=== PATIENT | female | born 1995 | race Hispanic/Latino ===

== ENCOUNTER 2017-05-27 17:18 | Emergency (ER) | payer OTHER ==
[~2017-05-27] VITALS: Ht 162.6 cm; Wt 93.1 kg
[~2017-05-27 17:18] MED LIST: BREAST PUMP MC; COLACE100 MG PO; DILAUDID2 MG PO; DOCUSATE SODIU100 MG PO; ENDOCET 5-3251 EACH PO; HYDROCORTISON28.4 GM TP; IBUPROFEN800 MG PO; IRON325 MG PO; KEFLEX500 MG PO; NAPROXEN375 MG PO; PRENATAL TABLE1 EAC3 PO; PROVENTIL,2.5 MG/3 M IH; STROVITE1 EACH PO; VENTOLIN HFA18 GM IH; ZOFRAN4 MG PO
[2017-05-27 18:05] LABS: ADD MIUA? NO; BILIRUBIN NEGATIVE; BLOOD NEGATIVE; COLOR YELLOW ((YELLOW)); GLUCOSE (STRIP) NEGATIVE; KETONES NEGATIVE; LEUKOCYTES NEGATIVE; NITRITE NEGATIVE; PROTEIN (STRIP) NEGATIVE; SPECIFIC GRAVITY 1.017 (1.000-1.030); UROBILINOGEN 0.2 MG/DL (0.2-1.0)
[2017-05-27 18:33] LABS: HEMATOCRIT 36.7 % (36.0-46.0); MCH 27.7 PG (29.0-34.0); MCHC 32.4 G/DL (30.0-36.0); MCV 85.3 FL (83-99); MEAN PLAT.VOLUME 11.5 uM^3 (9.5-12.4); PLATELET COUNT 88 K/uL (156-360); RBC DIS.WIDTH-SD 43.8 % (39-53)
[2017-05-27 18:46] LABS: CHLORIDE 108 mEq/L (99-109); POTASSIUM 3.8 mEq/L (3.7-5.4); SODIUM 140 mEq/L (136-147)
[2017-05-27 18:48] LABS: GLUCOSE 85 mg/dL (70-99)
[2017-05-27 18:50] LABS: ANION GAP 7 MEQ/L (2-14)
[2017-05-27 18:53] LABS: UREA NITROGEN (BUN) 11 mg/dL (9-23)
[2017-05-27 18:55] LABS: QUANTITATIVE HCG 250.1 MIU/ML
[2017-05-27 18:57] LABS: GFR ESTIMATE (CALCULATED) > 59 mL/min/
[2017-05-27 19:44] VITALS: BP 123/83
== END 2017-05-27 19:44 | disposition home or self-care (01) ==
LOC: EME 17:18
PROVIDERS: Physician Assistant
DX: O20.9 Hemorrhage in early pregnancy, unspecified (principal); O99.330 Smoking (tobacco) complicating pregnancy, unspecified trimester; F17.200 Nicotine dependence, unspecified, uncomplicated; Z3A.00 Weeks of gestation of pregnancy not specified; J45.909 Unspecified asthma, uncomplicated; Z91.040 Latex allergy status; Z90.49 Acquired absence of other specified parts of digestive tract
CPT/HCPCS: 80048; 81003; 84702; 85027; 99281; 99283

== ENCOUNTER 2017-06-17 01:52 | Emergency (ER) | payer OTHER ==
[~2017-06-17] VITALS: Ht 160 cm; Wt 92.0 kg
[2017-06-17 02:35] LABS: ADD MIUA? YES; BILIRUBIN NEGATIVE; BLOOD NEGATIVE; COLOR AMBER ((YELLOW)); GLUCOSE (STRIP) NEGATIVE; KETONES NEGATIVE; LEUKOCYTES NEGATIVE; NITRITE NEGATIVE; PROTEIN (STRIP) 30; UROBILINOGEN 0.2 MG/DL (0.2-1.0)
[2017-06-17 02:46] LABS: BACTERIA 2+ /HPF; EPITHELIAL CELLS 2+ /HPF; MUCUS 3+ /LPF; RED BLOOD CELLS 0-5 /HPF (0-5); UCUL ADDED? YES; WHITE BLOOD CELLS 0-5 /HPF (0-5)
[2017-06-17 02:48] LABS: HEMATOCRIT 36.7 % (36.0-46.0); MCH 28.5 PG (29.0-34.0); MCV 86.6 FL (83-99); MEAN PLAT.VOLUME 10.6 uM^3 (9.5-12.4); PLATELET COUNT 216 K/uL (156-360); RBC DIS.WIDTH-CV 13.9 % (11.8-14.6); RBC DIS.WIDTH-SD 43.9 % (39-53); RED BLOOD COUNT 4.24 M/uL (3.80-5.20); WHITE BLOOD COUNT 11.7 K/uL (4.1-10.2)
[2017-06-17 03:21] LABS: CHLORIDE 105 mEq/L (99-109); POTASSIUM 3.4 mEq/L (3.7-5.4); SODIUM 137 mEq/L (136-147)
[2017-06-17 03:23] LABS: GLUCOSE 97 mg/dL (70-99)
[2017-06-17 03:24] LABS: ANION GAP 9 MEQ/L (2-14)
[2017-06-17 03:25] LABS: TOTAL BILIRUBIN 0.4 mg/dL (0.0-1.0)
[2017-06-17 03:26] LABS: ALKALINE PHOSPHATASE 84 IU/L (3-129)
[2017-06-17 03:27] LABS: GFR ESTIMATE (CALCULATED) > 59 mL/min/
[2017-06-17 03:28] LABS: UREA NITROGEN (BUN) 8 mg/dL (9-23)
[2017-06-17 03:30] LABS: LIPASE 19 U/L (1.0-51.0)
[2017-06-17 03:31] LABS: QUANTITATIVE HCG 92814.6 MIU/ML
[2017-06-17] MEDS ORDERED: MACROBID100 MG PO (05:33)
[2017-06-17 05:56] VITALS: BP 90/34
== END 2017-06-17 06:23 | disposition home or self-care (01) ==
LOC: EME 01:52
DX: O23.11 Infections of bladder in pregnancy, first trimester (principal); O20.9 Hemorrhage in early pregnancy, unspecified; O99.331 Smoking (tobacco) complicating pregnancy, first trimester; Z3A.01 Less than 8 weeks gestation of pregnancy; J45.909 Unspecified asthma, uncomplicated; Z90.49 Acquired absence of other specified parts of digestive tract; F17.200 Nicotine dependence, unspecified, uncomplicated
CPT/HCPCS: 76801; 80053; 81003; 83690; 84702; 85027; 87086; 99281; 99284

== ENCOUNTER 2017-07-21 16:59 | Emergency (ER) | payer OTHER ==
[~2017-07-21] VITALS: Ht 160 cm; Wt 87.3 kg
[~2017-07-21 16:59] MED LIST changes: +MACROBID100 MG PO
[2017-07-21 19:47] LABS: HEMATOCRIT 40.1 % (36.0-46.0); MCHC 33.7 G/DL (30.0-36.0); MCV 86.2 FL (83-99); MEAN PLAT.VOLUME 11.1 uM^3 (9.5-12.4); PLATELET COUNT 210 K/uL (156-360); RBC DIS.WIDTH-CV 13.3 % (11.8-14.6); RBC DIS.WIDTH-SD 41.3 % (39-53); RED BLOOD COUNT 4.65 M/uL (3.80-5.20); WHITE BLOOD COUNT 12.9 K/uL (4.1-10.2)
[2017-07-21 19:52] LABS: ADD MIUA? YES; BILIRUBIN NEGATIVE; BLOOD NEGATIVE; COLOR YELLOW ((YELLOW)); GLUCOSE (STRIP) NEGATIVE; KETONES 20; LEUKOCYTES NEGATIVE; NITRITE NEGATIVE; PROTEIN (STRIP) 30; SPECIFIC GRAVITY 1.033 (1.000-1.030)
[2017-07-21 20:09] LABS: BACTERIA RARE /HPF; EPITHELIAL CELLS RARE /HPF; HYALINE CASTS 0-5 /LPF; MUCUS 2+ /LPF; RED BLOOD CELLS 0-5 /HPF (0-5); UCUL ADDED? NO; WHITE BLOOD CELLS 0-5 /HPF (0-5)
[2017-07-21 20:21] LABS: CHLORIDE 105 mEq/L (99-109); POTASSIUM 3.4 mEq/L (3.7-5.4); SODIUM 138 mEq/L (136-147)
[2017-07-21 20:23] LABS: GLUCOSE 89 mg/dL (70-99)
[2017-07-21 20:25] LABS: ANION GAP 13 MEQ/L (2-14); TOTAL BILIRUBIN 0.3 mg/dL (0.0-1.0)
[2017-07-21 20:27] LABS: ALKALINE PHOSPHATASE 73 IU/L (3-129); GFR ESTIMATE (CALCULATED) > 59 mL/min/
[2017-07-21 20:28] LABS: UREA NITROGEN (BUN) 11 mg/dL (9-23)
[2017-07-21] MEDS ORDERED: ZOFRAN ODT4 MG PO (22:39)
[2017-07-21] MEDS ORDERED: ZOFRAN4 MG PO (23:20)
[2017-07-21 23:33] VITALS: BP 97/52
== END 2017-07-21 23:33 | disposition home or self-care (01) ==
LOC: EME 16:59
PROVIDERS: Nurse Practitioner Family
DX: O26.891 Other specified pregnancy related conditions, first trimester (principal); R11.2 Nausea with vomiting, unspecified; R10.32 Left lower quadrant pain; Z3A.12 12 weeks gestation of pregnancy; J45.909 Unspecified asthma, uncomplicated; Z90.49 Acquired absence of other specified parts of digestive tract; Z87.891 Personal history of nicotine dependence
CPT/HCPCS: 76801; 80053; 81003; 84702; 85027; 99281; 99285; J2405; J7030

== ENCOUNTER 2017-08-12 01:09 | Emergency (ER) | payer OTHER ==
[~2017-08-12] VITALS: Ht 160 cm; Wt 88.4 kg
[~2017-08-12 01:09] MED LIST changes: +ZOFRAN ODT4 MG PO
[2017-08-12 01:35] LABS: HEMATOCRIT 34.8 % (36.0-46.0); MCH 29.5 PG (29.0-34.0); MCHC 33.9 G/DL (30.0-36.0); PLATELET COUNT 222 K/uL (156-360); RBC DIS.WIDTH-CV 13.5 % (11.8-14.6); RBC DIS.WIDTH-SD 42.9 % (39-53); WHITE BLOOD COUNT 14.1 K/uL (4.1-10.2)
[2017-08-12 01:42] LABS: CHLORIDE 105 mEq/L (99-109); POTASSIUM 3.6 mEq/L (3.7-5.4); SODIUM 138 mEq/L (136-147)
[2017-08-12 01:45] LABS: GLUCOSE 110 mg/dL (70-99)
[2017-08-12 01:46] LABS: ANION GAP 11 MEQ/L (2-14)
[2017-08-12 01:47] LABS: TOTAL BILIRUBIN 0.2 mg/dL (0.0-1.0)
[2017-08-12 01:48] LABS: ALKALINE PHOSPHATASE 75 IU/L (3-129); GFR ESTIMATE (CALCULATED) > 59 mL/min/
[2017-08-12 01:49] LABS: UREA NITROGEN (BUN) 10 mg/dL (9-23)
[2017-08-12 01:58] LABS: LIPASE 16 U/L (1.0-51.0)
[2017-08-12 02:06] LABS: ADD MIUA? YES; BILIRUBIN NEGATIVE; BLOOD NEGATIVE; COLOR YELLOW ((YELLOW)); GLUCOSE (STRIP) NEGATIVE; KETONES 5; LEUKOCYTES NEGATIVE; NITRITE NEGATIVE; PROTEIN (STRIP) NEGATIVE; SPECIFIC GRAVITY 1.019 (1.000-1.030)
[2017-08-12 02:27] LABS: QUANTITATIVE HCG 43741.9 MIU/ML
[2017-08-12 02:49] LABS: BACTERIA 1+ /HPF; EPITHELIAL CELLS 2+ /HPF; MUCUS NONE SEEN /LPF; RED BLOOD CELLS NONE SEEN /HPF (0-5); UCUL ADDED? NO; WHITE BLOOD CELLS NONE SEEN /HPF (0-5)
[2017-08-12 05:38] VITALS: BP 101/50
== END 2017-08-12 05:43 | disposition home or self-care (01) ==
LOC: EME 01:09
DX: O26.892 Other specified pregnancy related conditions, second trimester (principal); R10.32 Left lower quadrant pain; O21.9 Vomiting of pregnancy, unspecified; Z3A.15 15 weeks gestation of pregnancy; O99.512 Diseases of the respiratory system complicating pregnancy, second trimester; J45.909 Unspecified asthma, uncomplicated; O99.342 Other mental disorders complicating pregnancy, second trimester; F32.9 Major depressive disorder, single episode, unspecified; Z87.891 Personal history of nicotine dependence
CPT/HCPCS: 76805; 80053; 81003; 83690; 84702; 85027; 99281; 99283

== ENCOUNTER 2017-08-18 19:35 | Emergency (ER) | payer OTHER ==
[~2017-08-18] VITALS: Ht 160 cm; Wt 88.1 kg
[2017-08-18 20:45] LABS: HEMATOCRIT 34.8 % (36.0-46.0); MCH 29.4 PG (29.0-34.0); MEAN PLAT.VOLUME 10.5 uM^3 (9.5-12.4); PLATELET COUNT 194 K/uL (156-360); RBC DIS.WIDTH-CV 13.6 % (11.8-14.6); RBC DIS.WIDTH-SD 44.5 % (39-53); RED BLOOD COUNT 3.91 M/uL (3.80-5.20); WHITE BLOOD COUNT 11.7 K/uL (4.1-10.2)
[2017-08-18] MEDS ORDERED: PRENATAL TABLE1 EAC3 PO (20:52)
[2017-08-18 20:59] LABS: CHLORIDE 108 mEq/L (99-109); POTASSIUM 3.8 mEq/L (3.7-5.4); SODIUM 137 mEq/L (136-147)
[2017-08-18 21:01] LABS: GLUCOSE 79 mg/dL (70-99)
[2017-08-18 21:02] LABS: ANION GAP 8 MEQ/L (2-14)
[2017-08-18 21:04] LABS: ALKALINE PHOSPHATASE 68 IU/L (3-129)
[2017-08-18 21:05] LABS: GFR ESTIMATE (CALCULATED) > 59 mL/min/
[2017-08-18 21:06] LABS: UREA NITROGEN (BUN) 8 mg/dL (9-23)
[2017-08-18 21:11] LABS: TOTAL BILIRUBIN 0.3 mg/dL (0.0-1.0)
[2017-08-18 21:13] LABS: ADD MIUA? YES; BILIRUBIN NEGATIVE; BLOOD NEGATIVE; COLOR YELLOW ((YELLOW)); GLUCOSE (STRIP) NEGATIVE; KETONES 20; LEUKOCYTES SMALL; NITRITE NEGATIVE; PROTEIN (STRIP) 30; SPECIFIC GRAVITY 1.025 (1.000-1.030); UROBILINOGEN 0.2 MG/DL (0.2-1.0)
[2017-08-18 21:20] LABS: BACTERIA RARE /HPF; EPITHELIAL CELLS 3+ /HPF; HYALINE CASTS 0-5 /LPF; MUCUS TRACE /LPF; RED BLOOD CELLS 0-5 /HPF (0-5); WHITE BLOOD CELLS 0-5 /HPF (0-5)
[2017-08-18] MEDS ORDERED: ZOFRAN8 MG PO (21:44)
[2017-08-18 22:23] VITALS: BP 108/64
== END 2017-08-18 22:28 | disposition home or self-care (01) ==
LOC: EME 19:35
PROVIDERS: Physician Assistant
DX: O21.9 Vomiting of pregnancy, unspecified (principal); O20.9 Hemorrhage in early pregnancy, unspecified; J45.909 Unspecified asthma, uncomplicated; Z87.891 Personal history of nicotine dependence; Z3A.15 15 weeks gestation of pregnancy
CPT/HCPCS: 80053; 81003; 85027; 99281; 99285; J2405; J7030

== ENCOUNTER 2017-10-15 20:13 | Outpatient (CLI) | payer OTHER ==
[~2017-10-15 20:13] MED LIST changes: +ZOFRAN8 MG PO
[2017-10-15 20:26] VITALS: BP 115/59
[2017-10-15 21:12] LABS: EOSINOPHIL (%) 0.6 % (0-5); EOSINOPHIL COUNT 0.1 K/uL (0-0.3); HEMATOCRIT 35.9 % (36.0-46.0); IMMATURE GRANULOCYTE (%) 1.1 % (0.0-0.7); IMMATURE GRANULOCYTE COUNT 0.2 K/uL; INSTRUMENT ABS NEUTROPHIL CT 11.5 K/uL; LYMPHOCYTE COUNT 1.8 K/uL (1.0-2.8); MCH 29.8 PG (29.0-34.0); MCHC 33.1 G/DL (30.0-36.0); MCV 89.8 FL (83-99); MEAN PLAT.VOLUME 10.7 uM^3 (9.5-12.4); MONOCYTE (%) 4.6 % (3-12); MONOCYTE COUNT 0.7 K/uL (0-0.8); NEUTROPHIL (%) 80.6 % (45-76); NEUTROPHIL COUNT 11.5 K/uL (1.8-6.4); PLATELET COUNT 208 K/uL (156-360); RBC DIS.WIDTH-CV 13.4 % (11.8-14.6); RBC DIS.WIDTH-SD 44.2 % (39-53); WHITE BLOOD COUNT 14.3 K/uL (4.1-10.2)
[2017-10-15 21:16] LABS: ADD MIUA? YES; BILIRUBIN NEGATIVE; BLOOD NEGATIVE; COLOR AMBER ((YELLOW)); GLUCOSE (STRIP) NEGATIVE; KETONES 20; LEUKOCYTES NEGATIVE; NITRITE NEGATIVE; PROTEIN (STRIP) 100; SPECIFIC GRAVITY 1.027 (1.000-1.030)
[2017-10-15 21:21] LABS: ANION GAP 9 MEQ/L (2-14); CHLORIDE 106 MEQ/L (99-109); POTASSIUM 3.8 MEQ/L (3.7-5.4); SAMPLE HEMOLYSIS CHECK 0; SAMPLE ICTERIC CHECK 0; SAMPLE LIPEMIA CHECK 0; SODIUM 139 MEQ/L (136-147); TOTAL BILIRUBIN 0.6 MG/DL (0.0-1.0)
[2017-10-15 21:27] LABS: ALKALINE PHOSPHATASE 90 IU/L (3-129); GFR ESTIMATE (CALCULATED) > 59 mL/min/; GLUCOSE 82 mg/dL (70-99); UREA NITROGEN (BUN) 9 mg/dL (9-23)
[2017-10-15 21:29] LABS: RED BLOOD CELLS 0-5 /HPF (0-5); WHITE BLOOD CELLS 0-5 /HPF (0-5)
[2017-10-15 21:30] LABS: BACTERIA 2+ /HPF; EPITHELIAL CELLS 3+ /HPF; MUCUS 2+ /LPF
[2017-10-15 21:31] LABS: AMORPHOUS URATES CRYSTALS 1+
== END 2017-10-16 00:14 | disposition home or self-care (01) ==
LOC: LDRP-OP → 2WEST 20:15 → LDRP-OP 03-03 13:11
PROVIDERS: Nurse Practitioner
DX: O36.8120 Decreased fetal movements, second trimester, not applicable or unspecified (principal); Z3A.24 24 weeks gestation of pregnancy
CPT/HCPCS: 59025; 80053; 81003; 85025; 87086; G0378; J2405; J7120

== ENCOUNTER 2017-11-06 19:13 | Outpatient (CLI) | payer OTHER ==
[~2017-11-06] VITALS: Ht 160 cm; Wt 87.5 kg
[2017-11-06 19:52] VITALS: BP 103/58
[2017-11-06 20:39] LABS: SOURCE SWAB
[2017-11-06 20:52] LABS: APPEARANCE SL.HAZY ((CLEAR)); BILIRUBIN NEGATIVE; BLOOD NEGATIVE; COLOR YELLOW ((YELLOW)); GLUCOSE (STRIP) NEGATIVE; KETONES NEGATIVE; LEUKOCYTES NEGATIVE; NITRITE NEGATIVE; PROTEIN (STRIP) NEGATIVE; SPECIFIC GRAVITY 1.008 (1.000-1.030); UROBILINOGEN 0.2 MG/DL (0.2-1.0)
[2017-11-06 20:56] LABS: BACTERIA RARE /HPF; EPITHELIAL CELLS 1+ /HPF; MUCUS TRACE /LPF; RED BLOOD CELLS 0-5 /HPF (0-5); UCUL ADDED? NO; WHITE BLOOD CELLS 0-5 /HPF (0-5)
[2017-11-08 15:42] LABS: CANDIDA DNA PROBE NEGATIVE; GARDNERELLA DNA PROBE POSITIVE; TRICHOMONAS DNA PROBE NEGATIVE
== END 2017-11-06 21:00 | disposition home or self-care (01) ==
LOC: LDRP-OP 19:13 → 2WEST 19:15 → LDRP-OP 03-03 00:18
PROVIDERS: Midwife; Obstetrics & Gynecology Gynecology
DX: O99.89 Other specified diseases and conditions complicating pregnancy, childbirth and the puerperium (principal); R10.9 Unspecified abdominal pain; O34.219 Maternal care for unspecified type scar from previous cesarean delivery; O99.342 Other mental disorders complicating pregnancy, second trimester; F41.9 Anxiety disorder, unspecified; F42.9 Obsessive-compulsive disorder, unspecified; O99.512 Diseases of the respiratory system complicating pregnancy, second trimester; J45.909 Unspecified asthma, uncomplicated; O99.332 Smoking (tobacco) complicating pregnancy, second trimester; F17.200 Nicotine dependence, unspecified, uncomplicated; Z90.49 Acquired absence of other specified parts of digestive tract; Z86.19 Personal history of other infectious and parasitic diseases; Z3A.27 27 weeks gestation of pregnancy
CPT/HCPCS: 59025; 81003; 87480; 87491; 87510; 87591; 87660; G0378

== ENCOUNTER 2017-12-17 13:44 | Outpatient (CLI) | payer OTHER ==
[~2017-12-17] VITALS: Ht 152.4 cm; Wt 91.1 kg
[2017-12-17 14:02] VITALS: BP 111/58
[2017-12-17 14:55] LABS: SOURCE SWAB
[2017-12-17 15:00] LABS: APPEARANCE CLOUDY ((CLEAR)); BILIRUBIN NEGATIVE; BLOOD NEGATIVE; COLOR AMBER ((YELLOW)); GLUCOSE (STRIP) NEGATIVE; KETONES NEGATIVE; LEUKOCYTES NEGATIVE; NITRITE NEGATIVE; PROTEIN (STRIP) 30; SPECIFIC GRAVITY 1.026 (1.000-1.030)
[2017-12-17 15:48] LABS: RED BLOOD CELLS 0-5 /HPF (0-5); WHITE BLOOD CELLS 0-5 /HPF (0-5)
[2017-12-17 15:49] LABS: BACTERIA 2+ /HPF; CALCIUM OXALATE CRYSTALS 1+ /HPF; EPITHELIAL CELLS 3+ /HPF; MUCUS 3+ /LPF; UCUL ADDED? YES
[2017-12-17 16:25] LABS: CANDIDA DNA PROBE NEGATIVE; GARDNERELLA DNA PROBE NEGATIVE; TRICHOMONAS DNA PROBE NEGATIVE
== END 2017-12-17 15:28 | disposition home or self-care (01) ==
LOC: LDRP-OP 13:44 → 2WEST 13:45 → LDRP-OP 03-13 21:34
PROVIDERS: Midwife
DX: O26.893 Other specified pregnancy related conditions, third trimester (principal); O34.219 Maternal care for unspecified type scar from previous cesarean delivery; O99.343 Other mental disorders complicating pregnancy, third trimester; F41.9 Anxiety disorder, unspecified; F42.9 Obsessive-compulsive disorder, unspecified; O99.213 Obesity complicating pregnancy, third trimester; E66.9 Obesity, unspecified; Z90.49 Acquired absence of other specified parts of digestive tract; Z87.891 Personal history of nicotine dependence; Z3A.33 33 weeks gestation of pregnancy
CPT/HCPCS: 59025; 81003; 87086; 87480; 87491; 87510; 87591; 87660; G0378

== ENCOUNTER 2018-01-12 18:12 | Outpatient (CLI) | payer OTHER ==
[2018-01-12 18:28] VITALS: BP 116/64
== END 2018-01-12 19:05 | disposition home or self-care (01) ==
LOC: LDRP-OP 18:12 → 2WEST 18:14 → LDRP-OP 03-13 15:31
DX: O36.8130 Decreased fetal movements, third trimester, not applicable or unspecified (principal); Z3A.36 36 weeks gestation of pregnancy
CPT/HCPCS: 59025; G0378

== ENCOUNTER 2018-01-18 05:51 | Outpatient (CLI) | payer OTHER ==
[~2018-01-18] VITALS: Ht 160 cm; Wt 94.1 kg
[2018-01-18 06:06] VITALS: BP 121/63
[2018-01-18] MEDS ORDERED: PRENATAL GUMMI1 EACH PO (07:11)
== END 2018-01-18 07:55 | disposition home or self-care (01) ==
LOC: LDRP-OP 05:51 → 2WEST 05:52 → LDRP-OP 03-13 20:15
DX: O99.89 Other specified diseases and conditions complicating pregnancy, childbirth and the puerperium (principal); M54.5 Low back pain; O99.343 Other mental disorders complicating pregnancy, third trimester; F98.8 Other specified behavioral and emotional disorders with onset usually occurring in childhood and adolescence; F41.9 Anxiety disorder, unspecified; F32.9 Major depressive disorder, single episode, unspecified; O34.219 Maternal care for unspecified type scar from previous cesarean delivery; Z86.19 Personal history of other infectious and parasitic diseases; Z90.49 Acquired absence of other specified parts of digestive tract; O99.333 Smoking (tobacco) complicating pregnancy, third trimester; F17.200 Nicotine dependence, unspecified, uncomplicated; Z3A.37 37 weeks gestation of pregnancy
CPT/HCPCS: 59025; G0378

== ENCOUNTER 2018-01-23 18:25 | Outpatient (CLI) | payer OTHER ==
[~2018-01-23] VITALS: Ht 160 cm; Wt 92.5 kg
[~2018-01-23 18:25] MED LIST changes: +PRENATAL GUMMI1 EACH PO
[2018-01-23 18:57] VITALS: BP 112/59
[2018-01-23] MEDS ORDERED: ZOFRAN8 MG PO (19:21)
[2018-01-23 20:50] VITALS: BP 114/70
[2018-01-23 22:20] LABS: AMPHETAMINE NEGATIVE (500 ng/mL); BARBITURATES NEGATIVE (200 ng/mL); BENZODIAZEPINES NEGATIVE (150 ng/mL); BUPRENORPHINE NEGATIVE (10 ng/mL); COCAINE NEGATIVE (150 ng/mL); METHADONE NEGATIVE (200 ng/mL); METHAMPHETAMINE NEGATIVE (500 ng/mL); OPIATES (MORPHINE) NEGATIVE (100 ng/mL); OXYCODONE NEGATIVE (100 ng/mL); PHENCYCLIDINE NEGATIVE (25 ng/mL); PROPOXYPHENE NEGATIVE (300 ng/mL); THC CANNABINOIDS NEGATIVE (50 ng/mL); TRICYCLIC ANTIDEPRESSANTS NEGATIVE (300 ng/mL)
== END 2018-01-23 21:46 | disposition home or self-care (01) ==
LOC: LDRP-OP 18:25 → 2WEST 18:27 → LDRP-OP 03-13 08:00
PROVIDERS: Advanced Practice Midwife
DX: O47.1 False labor at or after 37 completed weeks of gestation (principal); Z3A.38 38 weeks gestation of pregnancy; O99.343 Other mental disorders complicating pregnancy, third trimester; F41.9 Anxiety disorder, unspecified; F42.9 Obsessive-compulsive disorder, unspecified; O34.219 Maternal care for unspecified type scar from previous cesarean delivery
CPT/HCPCS: 59025; G0378

== ENCOUNTER 2018-01-28 14:01 | Outpatient (CLI) | payer OTHER ==
[~2018-01-28] VITALS: Ht 160 cm; Wt 98.4 kg
[2018-01-28 14:26] VITALS: BP 102/69
[2018-01-29] MEDS ORDERED: IBUPROFEN800 MG PO (10:53)
[2018-01-29] MEDS ORDERED: ENDOCET 5-3251 EACH PO (10:53)
== END 2018-01-28 15:35 | disposition home or self-care (01) ==
LOC: LDRP-OP 14:01 → 2WEST 14:02 → LDRP-OP 03-13 21:51
DX: O47.1 False labor at or after 37 completed weeks of gestation (principal); Z3A.39 39 weeks gestation of pregnancy
CPT/HCPCS: 59025; G0378

== ENCOUNTER 2018-01-29 04:43 | Inpatient (IN) | payer OTHER ==
[2018-01-29] VITALS (10 sets, daily range): BP systolic 98–138; BP diastolic 53–80
[~2018-01-29] VITALS: Ht 160 cm; Wt 98.4 kg
[2018-01-29 10:47] LABS: BASOPHIL (%) 0.3 % (0-1); EOSINOPHIL (%) 1.3 % (0-5); EOSINOPHIL COUNT 0.2 K/uL (0-0.3); HEMATOCRIT 34.7 % (36.0-46.0); HEMOGLOBIN 11.1 G/DL (11.9-15.5); IMMATURE GRANULOCYTE (%) 0.6 % (0.0-0.7); LYMPHOCYTE (%) 28.1 % (15-42); MCH 27.8 PG (29.0-34.0); MONOCYTE (%) 5.6 % (3-12); MONOCYTE COUNT 0.8 K/uL (0-0.8); NEUTROPHIL (%) 64.1 % (45-76); NEUTROPHIL COUNT 9.2 K/uL (1.8-6.4); PLATELET COUNT 202 K/uL (156-360); RBC DIS.WIDTH-SD 44.3 % (39-53); RED BLOOD COUNT 3.99 M/uL (3.80-5.20); WHITE BLOOD COUNT 14.3 K/uL (4.1-10.2)
[2018-01-29] MEDS ORDERED: IBUPROFEN800 MG PO (10:53)
[2018-01-29] MEDS ORDERED: ENDOCET 5-3251 EACH PO (10:53)
[2018-01-29 11:29] LABS: AMPHETAMINE NEGATIVE (500 ng/mL); BARBITURATES NEGATIVE (200 ng/mL); BENZODIAZEPINES NEGATIVE (150 ng/mL); BUPRENORPHINE NEGATIVE (10 ng/mL); COCAINE NEGATIVE (150 ng/mL); METHADONE NEGATIVE (200 ng/mL); METHAMPHETAMINE NEGATIVE (500 ng/mL); OPIATES (MORPHINE) NEGATIVE (100 ng/mL); OXYCODONE NEGATIVE (100 ng/mL); PHENCYCLIDINE NEGATIVE (25 ng/mL); PROPOXYPHENE NEGATIVE (300 ng/mL); THC CANNABINOIDS NEGATIVE (50 ng/mL); TRICYCLIC ANTIDEPRESSANTS NEGATIVE (300 ng/mL)
[2018-01-30 03:49] VITALS: BP 104/52
[2018-01-30 07:12] LABS: BASOPHIL (%) 0.2 % (0-1); EOSINOPHIL (%) 0.1 % (0-5); HEMOGLOBIN 9.6 G/DL (11.9-15.5); IMMATURE GRANULOCYTE (%) 0.9 % (0.0-0.7); LYMPHOCYTE COUNT 4.1 K/uL (1.0-2.8); MCH 28.9 PG (29.0-34.0); MCHC 33.1 G/DL (30.0-36.0); MCV 87.3 FL (83-99); MONOCYTE (%) 7.1 % (3-12); MONOCYTE COUNT 1.4 K/uL (0-0.8); NEUTROPHIL (%) 71.7 % (45-76); NEUTROPHIL COUNT 14.6 K/uL (1.8-6.4); PLATELET COUNT 198 K/uL (156-360); RBC DIS.WIDTH-CV 14.3 % (11.8-14.6); RBC DIS.WIDTH-SD 44.8 % (39-53); RED BLOOD COUNT 3.32 M/uL (3.80-5.20); WHITE BLOOD COUNT 20.4 K/uL (4.1-10.2)
[2018-01-30 07:20] VITALS: BP 121/63
[2018-01-30 11:05] VITALS: BP 131/75
[2018-01-30 14:55] VITALS: BP 117/65
[2018-01-30 19:20] VITALS: BP 119/58
[2018-01-30 23:00] VITALS: BP 148/65
[2018-01-31] VITALS: BP 143/71
[2018-01-31 03:00] VITALS: BP 115/66
[2018-01-31 07:47] VITALS: BP 87/42
[2018-01-31 11:51] VITALS: BP 105/52
[2018-01-31 15:14] VITALS: BP 103/52
[2018-01-31 23:05] VITALS: BP 131/75
[2018-02-01 07:44] VITALS: BP 100/57
[2018-02-01 15:53] VITALS: BP 115/63
[2018-02-01 23:00] VITALS: BP 138/63
== END 2018-02-02 17:40 | disposition home or self-care (01) | DRG 766 ==
LOC: LDRP-OP 04:43 → 2WEST 04:44 → LDRP-OP 03-13 15:39
PROVIDERS: Advanced Practice Midwife; Obstetrics & Gynecology Gynecology
PROC: 10D00Z1 Extraction of Products of Conception, Low, Open Approach (ICD-10-PCS; principal; 2018-01-29)
DX: O34.211 Maternal care for low transverse scar from previous cesarean delivery (principal); O69.81X0 Labor and delivery complicated by cord around neck, without compression, not applicable or unspecified; O99.02 Anemia complicating childbirth; D50.9 Iron deficiency anemia, unspecified; O99.52 Diseases of the respiratory system complicating childbirth; J45.909 Unspecified asthma, uncomplicated; O99.334 Smoking (tobacco) complicating childbirth; F17.200 Nicotine dependence, unspecified, uncomplicated; O99.214 Obesity complicating childbirth; E66.9 Obesity, unspecified; Z88.0 Allergy status to penicillin; Z88.1 Allergy status to other antibiotic agents; Z91.040 Latex allergy status; Z68.33 Body mass index [BMI] 33.0-33.9, adult; Z3A.39 39 weeks gestation of pregnancy; Z37.0 Single live birth
CPT/HCPCS: 59025; 85025; 86850; 86900; 86901; G0378; J1170; J1580; J2405; J2550; J3010; J7050; J7120

== ENCOUNTER 2018-04-14 22:16 | Emergency (ER) | payer OTHER ==
[~2018-04-14] VITALS: Ht 177.8 cm; Wt 94.2 kg
[2018-04-14 23:15] LABS: HEMATOCRIT 39.5 % (36.0-46.0); HEMOGLOBIN 12.3 G/DL (11.9-15.5); MCH 25.3 PG (29.0-34.0); MCHC 31.1 G/DL (30.0-36.0); MCV 81.1 FL (83-99); PLATELET COUNT 267 K/uL (156-360); RBC DIS.WIDTH-CV 14.6 % (11.8-14.6); RBC DIS.WIDTH-SD 42.9 % (39-53); RED BLOOD COUNT 4.87 M/uL (3.80-5.20); WHITE BLOOD COUNT 8.6 K/uL (4.1-10.2)
[2018-04-15 00:31] LABS: APPEARANCE CLEAR ((CLEAR)); BILIRUBIN NEGATIVE; BLOOD NEGATIVE; COLOR YELLOW ((YELLOW)); GLUCOSE (STRIP) NEGATIVE; KETONES NEGATIVE; LEUKOCYTES NEGATIVE; NITRITE NEGATIVE; PROTEIN (STRIP) NEGATIVE; SPECIFIC GRAVITY 1.013 (1.000-1.030); UCUL ADDED? NO; UROBILINOGEN 0.2 MG/DL (0.2-1.0)
[2018-04-15 01:22] VITALS: BP 140/88
== END 2018-04-15 01:23 | disposition home or self-care (01) ==
LOC: EME 22:16
DX: N93.8 Other specified abnormal uterine and vaginal bleeding (principal); N83.201 Unspecified ovarian cyst, right side; F17.200 Nicotine dependence, unspecified, uncomplicated; Z88.0 Allergy status to penicillin
CPT/HCPCS: 76856; 76882; 81003; 84702; 85027; 99281; 99283

== ENCOUNTER 2018-05-06 15:24 | Emergency (ER) | payer OTHER ==
[~2018-05-06] VITALS: Ht 162.6 cm; Wt 94.1 kg
[2018-05-06 15:48] LABS: APPEARANCE CLEAR ((CLEAR)); BILIRUBIN NEGATIVE; BLOOD SMALL; COLOR STRAW ((YELLOW)); GLUCOSE (STRIP) NEGATIVE; KETONES NEGATIVE; LEUKOCYTES NEGATIVE; NITRITE NEGATIVE; PROTEIN (STRIP) NEGATIVE; SPECIFIC GRAVITY 1.012 (1.000-1.030); UROBILINOGEN 0.2 MG/DL (0.2-1.0)
[2018-05-06 15:50] LABS: BACTERIA RARE /HPF; EPITHELIAL CELLS RARE /HPF; MUCUS TRACE /LPF; RED BLOOD CELLS 0-5 /HPF (0-5); WHITE BLOOD CELLS 0-5 /HPF (0-5)
[2018-05-06 15:52] LABS: HEMOGLOBIN 11.9 G/DL (11.9-15.5); MCH 25.1 PG (29.0-34.0); MCHC 31.3 G/DL (30.0-36.0); PLATELET COUNT 247 K/uL (156-360); RBC DIS.WIDTH-CV 15.6 % (11.8-14.6); RBC DIS.WIDTH-SD 45.1 % (39-53); RED BLOOD COUNT 4.75 M/uL (3.80-5.20); WHITE BLOOD COUNT 7.3 K/uL (4.1-10.2)
[2018-05-06 16:00] LABS: CHLORIDE 110 mEq/L (99-109); POTASSIUM 4.3 mEq/L (3.7-5.4); SODIUM 140 mEq/L (136-147)
[2018-05-06 16:01] LABS: GLUCOSE 95 mg/dL (70-99)
[2018-05-06 16:05] LABS: CREATININE 0.8 mg/dL (0.6-1.3); GFR ESTIMATE (CALCULATED) > 59 mL/min/
[2018-05-06 16:06] LABS: UREA NITROGEN (BUN) 13 mg/dL (9-23)
[2018-05-06 16:14] LABS: QUANTITATIVE HCG < 4.0 MIU/ML
[2018-05-06 18:30] VITALS: BP 108/59
== END 2018-05-06 18:31 | disposition home or self-care (01) ==
LOC: EME 15:24
PROVIDERS: Nurse Practitioner Family
DX: N83.209 Unspecified ovarian cyst, unspecified side (principal); J45.909 Unspecified asthma, uncomplicated; F32.9 Major depressive disorder, single episode, unspecified; F17.200 Nicotine dependence, unspecified, uncomplicated; Z90.49 Acquired absence of other specified parts of digestive tract; Z91.040 Latex allergy status; Z88.0 Allergy status to penicillin; Z88.1 Allergy status to other antibiotic agents
CPT/HCPCS: 76856; 80048; 81003; 84702; 85027; 99281; 99284